=== PATIENT | male | born 1970 | race Caucasian/White ===

== ENCOUNTER → 2025-08-13 | Outpatient (CLI) | payer BC, SELFPAY ==
[2025-08-13 18:10] LABS: Uric Acid 7.6 mg/dL (3.7-9.2)
== END | disposition home or self-care (01) ==
LOC: COPL 16:19
PROVIDERS: PCP Family Medicine; Referring Provider Family Medicine; Visit Provider Family Medicine
DX: M10.9 Gout, unspecified (principal)
CPT/HCPCS: 36415; 84550

== ENCOUNTER → 2025-08-31 | Outpatient (CLI) | payer BC, SELFPAY ==
[2025-08-31 17:19] LABS: Uric Acid 5.1 mg/dL (3.7-9.2)
== END | disposition home or self-care (01) ==
LOC: COPL 16:20
PROVIDERS: PCP Family Medicine; Referring Provider Family Medicine; Visit Provider Family Medicine
DX: M10.9 Gout, unspecified (principal)
CPT/HCPCS: 36415; 84550